=== PATIENT | female | born 1975 | race Caucasian/White ===

== ENCOUNTER 2016-10-15 00:35 | Emergency (ER) | payer OTHER ==
[2016-10-15 01:29] LABS: BASOPHIL 0.8 % (0-2); EOSINOPHIL 1.2 % (0-5); HCT 42.9 % (37.0-47.0); LYMPHOCYTE 24.4 % (15-48); MCH 32.8 pg (25.0-31.0); MCV 93.7 fL (78.0-100.0); MPV 9.4 fL (6.0-9.5); NEUTROPHIL 68.6 % (41-80); PLT 326 K/uL (150-400); RBC 4.58 M/uL (4.20-5.40); WBC 11.8 K/uL (4.0-10.5)
[2016-10-15 01:41] LABS: INR 0.9 (0.9-1.2); PROTHROMBIN TIME 11.8 SECONDS (11.7-14.0)
[2016-10-15 01:56] LABS: ALBUMIN 4.3 g/dL (3.5-5.0); BILIRUBIN - TOTAL 0.4 mg/dL (0.1-1.0); GLOBULIN (CALCULATION) 3.2 g/dL (2.2-4.2); POTASSIUM 4.5 mmol/L (3.5-5.1); TOTAL PROTEIN 7.5 g/dL (6.4-8.3)
[2016-10-15 03:17] LABS: BILIRUBIN NEGATIVE (NEGATIVE); BLOOD NEGATIVE Ery/uL (NEGATIVE); CLARITY CLEAR (CLEAR); COLOR YELLOW (YELLOW); GLUCOSE (U) NORMAL (NORMAL); KETONE (U) NEGATIVE (NEGATIVE); LEUKOCYTES NEGATIVE Leu/uL (NEGATIVE); NITRITE NEGATIVE (NEGATIVE); PROTEIN NEGATIVE (NEGATIVE); SPECIFIC GRAVITY 1.015 (1.001-1.030); UROBILINOGEN 0.2 mg/dL (0.2-1.0)
[2016-10-15 03:41] LABS: LACTIC ACID 0.5 mmol/L (0.5-2.2)
== END 2016-10-15 04:30 | disposition home or self-care (01) ==
LOC: FER 00:35
PROVIDERS: Emergency Medicine
DX: R10.33 Periumbilical pain (principal); R11.2 Nausea with vomiting, unspecified; R82.90 Unspecified abnormal findings in urine; Z88.6 Allergy status to analgesic agent; Z88.8 Allergy status to other drugs, medicaments and biological substances; Z91.040 Latex allergy status; Z98.890 Other specified postprocedural states
CPT/HCPCS: 36415; 74022; 80053; 81003; 83605; 83690; 85025; 85610; 85730; 87088; J2270; J2405; Q9967

== ENCOUNTER 2021-03-26 20:01 | Emergency (ER) | payer OTHER ==
[~2021-03-26 20:01] MED LIST: ASPIRIN EC81 MG PO; FLEXERIL10 MG PO; FLEXERIL5 MG PO; INDERAL LA80 MG PO; LIPITOR20 MG PO; LIPITOR40 MG PO; MEDROL 4MG DOSEP4 MG PO; PLAVIX75 MG PO; PROMETHAZINE/C120 ML PO; TESSALON PERLE100 MG PO; TOPROL XL 25MG25 MG PO; ULTRAM50 MG PO; VALPROIC ACID250 MG PO; XANAX0.25 MG PO; ZESTRIL5 MG PO
[2021-03-26 21:01] LABS: BASOPHIL 0.6 % (0-2); EOSINOPHIL 1.4 % (0-5); HCT 39.4 % (37.0-47.0); HGB 13.6 g/dl (12.5-16.0); LYMPHOCYTE 41.7 % (15-48); MCH 32.2 pg (25.0-31.0); MCHC 34.5 g/dL (32.0-36.0); MCV 93.4 fL (78.0-100.0); MONOCYTE 5.9 % (0-12); NEUTROPHIL 50.3 % (41-80); NRBC 0; PLT 277 K/uL (150-400); RBC 4.22 M/uL (4.20-5.40); RDW 12.6 % (11.5-14.0); WBC 8.6 K/uL (4.0-10.5)
[2021-03-26 21:18] LABS: BUN/CREAT RATIO (CALC) 14.9 RATIO; CREATININE 0.87 mg/dL (0.51-0.95); POTASSIUM 3.9 mmol/L (3.5-5.1)
== END 2021-03-26 22:33 | disposition home or self-care (01) ==
LOC: FER 20:01
PROVIDERS: Emergency Medicine
DX: R60.0 Localized edema (principal); F17.210 Nicotine dependence, cigarettes, uncomplicated; Z98.890 Other specified postprocedural states; Z91.040 Latex allergy status; Z91.048 Other nonmedicinal substance allergy status
CPT/HCPCS: 36415; 80048; 85025; 85379; 93971